=== PATIENT | female | born 1990 | race Caucasian/White ===

== ENCOUNTER 2017-07-07 20:15 | Emergency (ER) | payer BC | END 2017-07-07 22:13 | disposition home or self-care (01) | LOC: D.ER 20:15 | DX: S00.81XA Abrasion of other part of head, initial encounter (principal); S80.812A Abrasion, left lower leg, initial encounter; S50.812A Abrasion of left forearm, initial encounter; S80.811A Abrasion, right lower leg, initial encounter; S50.811A Abrasion of right forearm, initial encounter; W54.0XXA Bitten by dog, initial encounter; Y93.89 Activity, other specified; Y92.89 Other specified places as the place of occurrence of the external cause; F17.200 Nicotine dependence, unspecified, uncomplicated ==

== ENCOUNTER 2017-07-15 16:52 | Emergency (ER) | payer MEDICAID | END 2017-07-15 20:30 | disposition home or self-care (01) | LOC: D.ER 16:52 | DX: Z29.14 Encounter for prophylactic rabies immune globulin (principal); F17.200 Nicotine dependence, unspecified, uncomplicated ==

== ENCOUNTER → 2017-07-19 17:40 | Outpatient (CLI) | payer MEDICAID ==
[2017-07-19 18:22] VITALS: BMI 25.0
== END | disposition home or self-care (01) ==
LOC: D.OPS 17:40
DX: Z23 Encounter for immunization (principal); Z20.3 Contact with and (suspected) exposure to rabies

== ENCOUNTER 2017-07-22 08:42 | Outpatient (CLI) | payer MEDICAID ==
[2017-07-22 09:33] VITALS: BP 114/65
== END 2017-07-22 09:50 ==
LOC: D.OPS 08:42
DX: Z23 Encounter for immunization (principal); Z20.3 Contact with and (suspected) exposure to rabies

== ENCOUNTER 2017-07-28 17:07 | Outpatient (CLI) | payer MEDICAID ==
[2017-07-28 18:09] VITALS: BP 133/78; BMI 27.5
--- NOTE | 2017-07-28 18:17 | NUR ---
1808 ASSESSMENT COMPLETED. NKDA, RABIES INJECTION GIVEN RT ARM IM. TIOLERATED IT VICKI.
--- NOTE | 2017-07-28 18:17 | NUR ---
[address] GATES STATED WOULD CALL DR. MOORE FOR PROBLEMS OR CONCERNS. DISCHARGED TO [id number].
== END 2017-07-28 18:18 | disposition home or self-care (01) ==
LOC: D.OPS 17:07
DX: Z23 Encounter for immunization (principal); Z20.3 Contact with and (suspected) exposure to rabies; T14.8XXA Other injury of unspecified body region, initial encounter; W54.0XXA Bitten by dog, initial encounter

== ENCOUNTER 2018-10-24 13:32 | Emergency (ER) | payer SELFPAY ==
[~2018-10-24] VITALS: Ht 167.6 cm; Wt 81.6 kg
[2018-10-24 13:54] VITALS: Ht 167.6 cm; Wt 81.6 kg
[2018-10-24] MEDS ORDERED: TORADOL10 MG PO (15:49)
[2018-10-24 16:25] VITALS: BP 125/75
== END 2018-10-24 16:25 | disposition home or self-care (01) ==
LOC: D.ER 13:32
DX: M54.5 Low back pain (principal)